=== PATIENT | female | born 1990 | race Two or more races ===

== ENCOUNTER 2023-01-03 13:05 | Emergency (ER) | payer SELFPAY ==
[~2023-01-03] VITALS: Ht 154.9 cm; Wt 63.0 kg
[2023-01-03 13:39] LABS: Urine Bacteria NONE SEEN /hpf (None Seen); Urine Blood Negative /uL (Negative); Urine Specific Gravity 1.003 (1.001-1.035); Urine WBC 1 /hpf (0 - 5)
[2023-01-03 14:16] LABS: Albumin 4.2 g/dL (3.4-5.0); Basophils # (auto) 0 10 ^3/uL (0-0.2); Basophils % (auto) 0.6 % (0.0-2.0); Calcium 9.4 mg/dL (8.5-10.1); Eosinophils # (auto) 0.1 10 ^3/uL (0-0.8); Eosinophils % (auto) 1.3 % (0.0-7.0); Hematocrit 43.5 % (36.0-46.0); Hemoglobin 14.7 g/dL (12.2-16.2); Lymphocytes # (auto) 2.6 10 ^3/uL (0.4-5.4); Lymphocytes % (auto) 41.3 % (10.0-50.0); Magnesium 2.4 mg/dL (1.6-2.6); Mean Corpuscular Hemoglobin 30.2 pg (28.0-32.0); Mean Corpuscular Hgb Conc. 33.7 g/dL (32.0-36.0); Mean Corpuscular Volume 89.7 fL (80.0-100.0); Monocytes # (auto) 0.4 10 ^3/uL (0-1.3); Monocytes % (auto) 5.8 % (0.0-12.0); Neutrophils # (auto) 3.2 10 ^3/uL (1.6-8.6); Nucleated Red Blood Cells % 0.5 %; Potassium 3.6 mmol/L (3.5-5.1); Red Blood Cells 4.85 10^6/uL (4.0-5.20); White Blood Cell 6.2 10^3/uL (4.4-10.8)
[2023-01-03 14:20] LABS: BUN/Creatinine Ratio 13.7 (10.0-20.0); Bilirubin, Total 0.4 mg/dL (0.2-1.0); Total Protein 8.6 g/dL (6.4-8.2)
[2023-01-03 14:49] LABS: INR 1.05 (0.9-1.15); Partial Thromboplastin Time 28.8 sec (24.6-33.4)
[2023-01-03 18:00] VITALS: BP 114/75
== END 2023-01-03 18:50 | disposition home or self-care (01) ==
LOC: ER 13:05
DX: F43.20 Adjustment disorder, unspecified (principal)
CPT/HCPCS: 36415; 70450; 71045; 80053; 81001; 81025; 82962; 83735; 83880; 84484; 85025; 85610; 85730